=== PATIENT | female | born 2000 | race Caucasian/White ===

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

== ENCOUNTER 2023-07-30 08:28 | Outpatient (RCR) | payer OTHER ==
[~2023-07-30 08:28] MED LIST: PREDNISONE10 MG; PROAIR HFA0.09 MG/AC; ZITHROMAX Z PA250 MG
== END 2023-08-29 | disposition home or self-care (01) ==
LOC: WSST
DX: J38.2 Nodules of vocal cords (principal)